=== PATIENT | female | born 2000 | race Caucasian/White ===

== ENCOUNTER 2020-01-12 18:20 | Emergency (ER) | payer BC ==
[2020-01-12 18:31] VITALS: RESP 18; TEMP 98.7
--- NOTE | 2020-01-12 19:09 | ED ---
URI HPI - General Chief Complaint: Upper Respiratory Infection Stated Complaint: chest pain Time Seen by Provider: 01/12/20 18:32 Source: patient Mode of arrival: ambulatory Limitations: no limitations - History of Present Illness Initial Comments: Patient is a 19-year-old female presenting to the emergency Department with complaints of Covid symptoms that began 4 days ago. Patient states 3 of her family members have recently tested positive for Covid, her results are still pending. Patient states she started having a headache 4 days ago followed by a mild sore throat and then a mild cough. Patient states yesterday and today she's been having intermittent chest pressure when she lays down and feels short of breath at times. Patient states she has been able to drink fluids, eating a little bit less than her normal period she's had intermittent nausea but no vomiting, no diarrhea. She denies history of asthma, she is a nonsmoker. She states she is not . She has had no fevers, no chills. She has no further complaints at this time. Upon arrival to the ER, her vital signs are stable. - Related Data Home Medications Medication Instructions Recorded Confirmed No Known Home Medications 01/12/20 01/12/20 Allergies Allergy/AdvReac Type Severity Reaction Status Date / Time No Known Allergies Allergy Verified 01/12/20 18:54 Review of Systems ROS Statement: Those systems with pertinent positive or pertinent negative responses have been documented in the HPI. ROS Other: All systems not noted in ROS Statement are negative. Past Medical History Past Medical History: No Reported History History of Any Multi-Drug Resistant Organisms: None Reported Additional Past Surgical History / Comment(s): multiple othro surgeries due to osterogenesis imperfecta Past Psychological History: No Psychological Hx Reported Smoking Status: Never smoker Past Alcohol Use History: None Reported Past Drug Use History: None Reported General Exam - General Exam Comments Initial Comments: GENERAL: Patient is well-developed and well-nourished. Patient is nontoxic and in no acute distress. HEAD: Atraumatic, normocephalic. EYES: Pupils equal round and reactive to light, extraocular movements intact, sclera anicteric, conjunctiva are normal. Eyelids were unremarkable. ENT: TMs normal, nares patent, oropharynx clear without exudates. Moist mucous membranes. NECK: Normal range of motion, supple without lymphadenopathy or JVD. LUNGS: Unlabored respirations. Breath sounds clear to auscultation bilaterally and equal. No wheezes rales or rhonchi. HEART: Regular rate and rhythm without murmurs, rubs or gallops. ABDOMEN: Soft, nontender, normoactive bowel sounds. No guarding, no rebound. No masses appreciated. : Deferred MUSCULOSKELETAL: Normal extremities with adequate strength and normal range of motion, no pitting or edema. No clubbing or cyanosis. NEUROLOGICAL: Patient is alert and oriented x 3. Motor and sensory are also intact. Normal speech, normal gait. PSYCH: Normal mood, normal affect. SKIN: Warm, Dry, normal turgor, no rashes or lesions noted. Limitations: no limitations Course Vital Signs 01/12/20 01/12/20 18:28 20:13 Temperature 98.7 F 98.7 F Pulse Rate 83 74 Respiratory 18 18 Rate Blood Pressure 145/85 131/93 O2 Sat by Pulse 100 99 Oximetry Medical Decision Making - Medical Decision Making Patient is a 19-year-old female here with Covid-like symptoms for 4 days. Her vital signs are stable, her exam is unremarkable. He is nontoxic, is resting comfortably in the room. Chest x-ray shows no acute process. Vital signs remained stable throughout her stay. I discussed with patient that she is most likely a Covid positive secondary to close contacts. Recommended continue with Tylenol or Motrin for discomfort. Return parameters were discussed with the patient and she verbalized understanding. She is stable for discharge. Case discussed with Dr. wang. Patient is in agreement with this plan of care. Disposition Clinical Impression: Suspected 2019-nCoV infection, Cough Disposition: HOME SELF-CARE Condition: Stable Instructions (If sedation given, give patient instructions): Upper Respiratory Infection (ED) Additional Instructions: Please return to the Emergency Department if symptoms worsen or any other concerns. May take Tylenol or Motrin for discomfort. Continue to drink a lot of fluids. Follow-up with PCP if needed. Is patient prescribed a controlled substance at d/c from ED?: No Referrals: Carla Lew MD [Primary Care Provider] - 1-2 days
--- NOTE | 2020-01-12 19:23 | XR ---
EXAMINATION TYPE: XR chest 2V DATE OF EXAM: 01/12/2020 COMPARISON: NONE HISTORY: Chest pain and cough. TECHNIQUE: Frontal and lateral views of the chest are obtained. FINDINGS: There is no focal air space opacity, pleural effusion, or pneumothorax seen. The cardiac silhouette size is within normal limits. The osseous structures are intact. IMPRESSION: No acute cardiopulmonary process.
[2020-01-12 20:16] VITALS: BP 131/93; PULSE 74
== END 2020-01-12 20:13 | disposition home or self-care (01) ==
LOC: EC 18:20
DX: R05 Cough (principal); Z20.828 Contact with and (suspected) exposure to other viral communicable diseases; R51.9 Headache, unspecified; R07.89 Other chest pain; R06.02 Shortness of breath; R11.0 Nausea
CPT/HCPCS: 71046; 99284

== ENCOUNTER 2024-01-27 11:38 | Day surgery (SDC) | payer BC ==
[2024-01-24 15:41] VITALS: BMI 24.6
[~2024-01-27 11:38] MED LIST: LIDOCAINE 1% (10MG/ML) FOR IV START INTRADERMA PRN
[2024-01-27 13:05] VITALS: RESP 16; TEMP 98.9
[2024-01-27] MEDS: LACTATED RINGERS 1,000 ML IV ONE (13:14)
[2024-01-27] MEDS: LACTATED RINGERS 1,000 ML IV SCH (13:19)
[2024-01-27] MEDS: ONDANSETRON 4 MG/2 ML VIAL IVP STA (13:19)
[2024-01-27] MEDS ORDERED: PROPOFOL 10 MG/ML 20 ML VIAL IV ONE (13:32)
[2024-01-27] MEDS ORDERED: LIDOCAINE 1% INJ 10MG/ML (20 ML MDV) ONE (13:32)
[2024-01-27] MEDS ORDERED: MIDAZOLAM 2 MG/2 ML VIAL ONE (13:32)
--- NOTE | 2024-01-27 13:51 | P.PCN ---
Date of Procedure: 01/27/24 Procedure(s) Performed: BRIEF HISTORY: Patient is a 23-year-old pleasant white female scheduled for an elective colonoscopy as a part of evaluation of lower abdominal pain and change in bowel habits PROCEDURE PERFORMED: Colonoscopy. PREOPERATIVE DIAGNOSIS: Lower abdominal pain and change in bowel habits. IV sedation per Anesthesia. PROCEDURE: After informed consent was obtained, the patient, was brought into the endoscopy unit. IV sedation was administered by Anesthesia under continuous monitoring. Digital rectal examination was normal. Initially the Olympus CF-160 flexible video colonoscope was then inserted in the rectum, gradually advanced into the cecum without any difficulty. Careful examination was performed as the scope was gradually being withdrawn. Ileocecal valve and the appendiceal orifice were visualized and appeared normal. Prep was excellent. Was excellent. W he was intubated centimeters visualized and appeared normal. Mucosa of the cecum, ascending colon, transverse colon, descending colon, sigmoid colon, and rectum appeared normal. Retroflexion was performed in the rectum and no lesions were seen. The patient tolerated the procedure well. IMPRESSION: Normal-appearing colon from rectum to cecum with no evidence of colorectal neoplasia. Appearing terminal ileum. RECOMMENDATIONS: Findings of this examination were discussed with the patient as well as her family. She was advised to continue with a high-fiber diet and fiber supplements on a regular basis. Follow-up in the office as needed if she has persistence of symptoms.
[2024-01-27 14:12] VITALS: BP 119/59; PULSE 73
== END 2024-01-27 14:29 | disposition home or self-care (01) ==
LOC: ORWHC2ENDO 11:38
PROVIDERS: ATTEND Internal Medicine Gastroenterology
DX: R19.4 Change in bowel habit (principal); R10.30 Lower abdominal pain, unspecified; F41.9 Anxiety disorder, unspecified; Z79.899 Other long term (current) drug therapy; Z98.890 Other specified postprocedural states
CPT/HCPCS: 45378; J2405; 81025